=== PATIENT | female | born 1980 ===

== ENCOUNTER 2016-11-25 21:22 | Emergency (ER) | payer SELFPAY ==
[~2016-11-25] VITALS: Ht 160 cm; Wt 107.5 kg
[2016-11-25 21:37] VITALS: Ht 160 cm; Wt 107.5 kg
[2016-11-25] MEDS ORDERED: ALBUTEROL 0.083% (NEB) 2.5 MG/3 ML AMP HHN STA (23:34)
[2016-11-26] MEDS ORDERED: IPRATROPIUM (NEB) 0.5 MG/2.5 ML AMP HHN ONE
--- NOTE | 2016-11-26 00:02 | ERA ---
ER Documentation Chief Complaint Date/Time DATE: 11/25/16 TIME: 23:59 Chief Complaint Epistaxis Right nare HPI This is a 36-year-old female presenting with her complaining of shortness of breath, epistaxis and cough 1 week. Epistaxis has been minimal but is increased over the past 24 hours. Patient denies hematemesis. Patient says that it is more difficult for her to walk without getting shortness of breath. Patient does have a positive history of asthma. Positive family cardiac history including sister at 24 secondary to an ND, grandfather at 29 secondary to cardiac issues and father still living with initial heart attack at 51. Patient denies any medical conditions. Patient denies headache, change in vision, change in hearing, stiff neck or smoking. ROS All systems reviewed and are negative except as per history of present illness. Allergies Allergies: Coded Allergies: No Known Allergy (Unverified , 11/25/16) PMhx/Soc History of Surgery: Yes (TUBAL LIGATION) Anesthesia Reaction: No Hx Neurological Disorder: No Hx Respiratory Disorders: Yes (ASTHMA) Hx Cardiac Disorders: No Hx Psychiatric Problems: No Hx Miscellaneous Medical Probl: No Hx Alcohol Use: No Hx Substance Use: No Hx Tobacco Use: No Smoking Status: Never smoker Physical Exam Vitals Vital Signs Date Time Temp Pulse Resp B/P Pulse Ox O2 Delivery O2 Flow Rate FiO2 11/25/16 23:44 98 24 96 21 11/25/16 21:37 98.5 98 20 134/86 97 Physical Exam Const: Morbidly obese 36-year-old female Head: Atraumatic Eyes: Normal Conjunctiva ENT: Normal External Ears, Nose and Mouth. Neck: Full range of motion..~ No meningismus. Resp: Audible wheezes with minimal crackles in all lung rowan bilaterally. Cardio: Regular rate and rhythm, no murmurs Abd: Soft, non tender, non distended. Normal bowel sounds Skin: No petechiae or rashes Back: No midline or flank tenderness Ext: No cyanosis, or edema Neur: Awake and alert Psych: Normal Mood and Affect Result Diagram: 11/25/16 0005 11/25/16 0005 Results 24 hrs Laboratory Tests Test 11/25/16 00:05 White Blood Count 9.410^3/ul Red Blood Count 4.4610^6/ul Hemoglobin 13.2g/dl Hematocrit 39.4% Mean Corpuscular Volume 88.3fl Mean Corpuscular Hemoglobin 29.6pg Mean Corpuscular Hemoglobin Concent 33.5g/dl Red Cell Distribution Width 13.2% Platelet Count 03752^3/UL Mean Platelet Volume 9.7fl Neutrophils % 44.8% Lymphocytes % 38.1% Monocytes % 5.8% Eosinophils % 10.4% Basophils % 0.6% Nucleated Red Blood Cells % 0.0/100WBC Neutrophils # 4.210^3/ul Lymphocytes # 3.610^3/ul Monocytes # 0.510^3/ul Eosinophils # 1.010^3/ul Basophils # 0.110^3/ul Nucleated Red Blood Cells # 0.010^3/ul Prothrombin Time 13.0Sec Prothrombin Time Ratio 1.0 INR International Normalized Ratio 0.98 Activated Partial Thromboplast Time 26.7Sec Sodium Level 139mmol/L Potassium Level 4.2mmol/L Chloride Level 107mmol/L Carbon Dioxide Level 22mmol/L Anion Gap 14 Blood Urea Nitrogen 14mg/dl Creatinine 0.65mg/dl Glucose Level 151mg/dl Calcium Level 8.9mg/dl Total Bilirubin 0.0mg/dl Direct Bilirubin 0.00mg/dl Indirect Bilirubin 0.0mg/dl Aspartate Amino Transf (AST/SGOT) 27IU/L Alanine Aminotransferase (ALT/SGPT) 38IU/L Alkaline Phosphatase 76IU/L Troponin I < 0.012ng/ml Total Protein 6.8g/dl Albumin 3.9g/dl Globulin 2.90g/dl Albumin/Globulin Ratio 1.34 Current Medications Medications (Trade) Dose Ordered Sig/[place]ard Route PRN Reason Start Time Stop Time Status Last Admin Dose Admin Albuterol (Proventil 0.083% (Neb)) 5 mg ONCE STAT HHN 11/25/16 23:34 11/25/16 23:35 DC 11/25/16 23:43 Ipratropium [place] (Atrovent 0.02% (Neb)) 0.5 mg ONCE ONCE HHN 11/26/16 00:00 11/26/16 00:01 DC 11/25/16 23:43 Ondansetron HCl (Zofran Inj) 4 mg ONCE STAT IV 11/26/16 00:22 11/26/16 00:24 DC 11/26/16 00:30 Procedures/MDM 36-year-old female being worked up for shortness of breath and cough. X-ray was obtained to rule out pneumonia. Cardiac labs were taken to rule out ND versus CHF exacerbation. Patient was given albuterol ipratropium in the ER for relief of most likely asthma symptoms. At this time I do not believe a CT of the head is necessary as there are no focal neurological findings or history of change of behavior altered mental status or trauma. Patient's workup was unremarkable. I presented the case again to my attending Dr. Ballesteros who has suggested to get a CTA. CTA was ordered and patient will be reevaluated. Patient was complaining of right ear pain that was most likely secondary to otitis externa. I splinted the patient that I would be giving antibiotics at discharge as well as pain medication. Patient eloped. Have since been told that the patient has extensive psych history as well as potential starting under a false name. Departure Diagnosis: Primary Impression: Multiple complaints Additional Impressions: Abdominal pain Qualified Code: R10.9 - Abdominal pain, unspecified location Shortness of breath Condition: Stable TOMMIE NGUYEN PA-C November 26, 2016 00:02
[2016-11-26 00:19] LABS: ADD SCAN DIFF NO
[2016-11-26 00:22] LABS: BASOPHIL # 0.1 10^3/ul (0.0-0.1); BASOPHILS % 0.6 % (0.0-2.0); EOSINOPHILS % 10.4 % (0.0-7.0); HEMATOCRIT 39.4 % (37.0-47.0); HEMOGLOBIN 13.2 g/dl (12.0-16.0); LYMPHOCYTES # 3.6 10^3/ul (0.8-2.9); LYMPHOCYTES % 38.1 % (15.0-51.0); MEAN CORPUSCULAR HEMOGLOBIN 29.6 pg (29.0-33.0); MEAN CORPUSCULAR HGB CONC 33.5 g/dl (32.0-37.0); MEAN CORPUSCULAR VOLUME 88.3 fl (82.0-101.0); MEAN PLATELET VOLUME 9.7 fl (7.4-10.4); MONOCYTE # 0.5 10^3/ul (0.3-0.9); MONOCYTES % 5.8 % (0.0-11.0); NEUTROPHIL # 4.2 10^3/ul (1.6-7.5); NEUTROPHILS % 44.8 % (39.0-77.0); PLATELET COUNT 325 10^3/UL (140-415); RED BLOOD COUNT 4.46 10^6/ul (4.20-5.40); RED CELL DISTRIBUTION WIDTH 13.2 % (11.5-14.5); WHITE BLOOD COUNT 9.4 10^3/ul (4.8-10.8)
[2016-11-26] MEDS ORDERED: ONDANSETRON 4 MG INJ IV STA (00:22)
[2016-11-26 00:49] LABS: ALANINE AMINOTRANSFERASE 38 IU/L (13-69); ALBUMIN 3.9 g/dl (3.3-4.9); ALBUMIN/GLOBULIN RATIO 1.34; ALKALINE PHOSPHATASE 76 IU/L (42-121); ANION GAP 14 (8-16); ASPARTATE AMINO TRANSFERASE 27 IU/L (15-46); BLOOD UREA NITROGEN 14 mg/dl (7-20); CALCIUM 8.9 mg/dl (8.4-10.2); CARBON DIOXIDE 22 mmol/L (21-31); CHLORIDE 107 mmol/L (97-110); CREATININE 0.65 mg/dl (0.44-1.00); GLUCOSE 151 mg/dl (70-220); POTASSIUM 4.2 mmol/L (3.5-5.1); SODIUM 139 mmol/L (135-144); TOTAL PROTEIN 6.8 g/dl (6.1-8.1)
[2016-11-26 00:59] LABS: INR 0.98
[2016-11-26 01:00] LABS: PARTIAL THROMBOPLASTIN TIME 26.7 Sec (25.0-35.0)
[2016-11-26 01:01] LABS: TROPONIN-I < 0.012 ng/ml (0.00-0.12)
--- NOTE | 2016-11-26 01:03 | RADRPT ---
PROCEDURE: XR Chest. CLINICAL INDICATION: Chest pain. TECHNIQUE: Single frontal view. COMPARISON: None. FINDINGS: The lungs are clear. The heart size is normal. There is no pleural effusion. There is no pneumothorax. IMPRESSION: 1. Normal chest radiograph. RPTAT: QQ .Jp Hinojosa MD, Date Time Electronically viewed and signed by .Jp Hinojosa MD, MD on 11/26/2016 01:03 .R/
== END 2016-11-26 02:11 | disposition left against medical advice (07) ==
LOC: FTE 21:22 → E/R 11-26 02:11
DX: R10.9 Unspecified abdominal pain (principal); R06.02 Shortness of breath; J45.909 Unspecified asthma, uncomplicated
CPT/HCPCS: 71010; 80053; 84484; 85025; 85610; 85730; 93005; 94664; 96374; 99285; J2405